=== PATIENT | female | born 1975 | race American Indian/Alaskan Native ===

== ENCOUNTER 2017-04-12 04:20 | Inpatient (IN) | payer OTHER, SELFPAY ==
--- NOTE | 2017-04-12 04:37 | ED PDOC ---
Arrival/HPI - General Chief Complaint: Medical Clearance Time Seen by Provider: 04/12/17 04:28 Historian: Patient - History of Present Illness Narrative History of Present Illness (Text): 04/12/17 04:36 Kimberly Hunter is a 41 year old female, whose past medical history includes pacemaker, who presents to the Emergency department brought in by EMS after she shocked by her pacemaker twice tonight. Patient states while at home she felt like she was going to pass out with associated palpitations when she was shocked twice by her pacemaker. Patient denies any fever, chest pain, shortness of breath, nausea, vomiting, back pain, neck pain, headache, dizziness, or any other complaints. Symptom Onset: Gradual Symptom Course: Unchanged Activities at Onset: Light Context: Home Past Medical History - Provider Review Nursing Documentation Reviewed: Yes - Cardiac Hx Pacemaker: Yes (03/31/10) - Pulmonary Hx Respiratory Disorders: No - Neurological Hx Neurological Disorder: No - HEENT Hx HEENT Disorder: No - Renal Hx Renal Disorder: No - Endocrine/Metabolic Hx Endocrine Disorders: No - Hematological/Oncological Hx Blood Disorders: No - Integumentary Hx Dermatological Disorder: No - Musculoskeletal/Rheumatological Hx Musculoskeletal Disorders: No - Gastrointestinal Hx Gastrointestinal Disorders: No - Genitourinary/Gynecological Hx Genitourinary Disorders: No - Psychiatric Hx Psychophysiologic Disorder: No Hx Substance Use: No - Surgical History Hx Open Heart Surgery: Yes (pacemaker 03/31/2010) Family/Social History - Physician Review Nursing Documentation Reviewed: Yes Family/Social History: Unknown Family HX Smoking Status: Never Smoked Hx Alcohol Use: No Hx Substance Use: No Allergies/Home Meds Allergies/Adverse Reactions: Allergies iodine Allergy (Verified 04/12/17 04:25) ANAPHYLAXIS Home Medications: Home Meds Medication Instructions Recorded Confirmed Metoprolol Succinate [Toprol XL] 50 mg PO DAILY 04/12/17 04/12/17 Phentermine HCl [Adipex-P] 37.5 mg PO DAILY 04/12/17 04/12/17 Review of Systems - Physician Review All systems were reviewed & negative as marked: Yes - Review of Systems Constitutional: Normal. absent: Fevers Eyes: Normal ENT: Normal Respiratory: Normal Cardiovascular: Palpitations, Other (+pacemaker shock) Gastrointestinal: Normal. absent: Abdominal Pain, Diarrhea, Nausea, Vomiting Genitourinary Female: Normal. absent: Dysuria, Frequency, Hematuria, Urine Output Changes Musculoskeletal: Normal. absent: Back Pain, Neck Pain Skin: Normal. absent: Rash Neurological: Normal. absent: Headache, Dizziness Endocrine: Normal Hemo/Lymphatic: Normal Psychiatric: Normal Physical Exam Vital Signs Reviewed: Yes Vital Signs Temp Pulse Resp BP Pulse Ox 04/12/17 08:25 90 18 135/80 100 04/12/17 08:00 90 18 122/70 99 04/12/17 07:45 104 H 18 122/66 98 04/12/17 07:24 98.1 F 102 H 18 125/69 100 04/12/17 06:47 102 H 22 132/72 100 04/12/17 05:54 91 H 22 126/67 100 04/12/17 04:30 98.7 F 80 12 123/78 99 Temperature: Afebrile Blood Pressure: Normal Pulse: Regular Respiratory Rate: Normal Appearance: Positive for: Well-Appearing, Non-Toxic, Comfortable Pain Distress: None Mental Status: Positive for: Alert and Oriented X 3 - Systems Exam Head: Present: Atraumatic, Normocephalic Pupils: Present: PERRL Extroacular Muscles: Present: EOMI Conjunctiva: Present: Normal Mouth: Present: Moist Mucous Membranes Neck: Present: Normal Range of Motion Respiratory/Chest: Present: Clear to Auscultation, Good Air Exchange. No: Respiratory Distress, Accessory Muscle Use Cardiovascular: Present: Regular Rate and Rhythm, Normal S1, S2. No: Murmurs Abdomen: Present: Normal Bowel Sounds. No: Tenderness, Distention, Peritoneal Signs Back: Present: Normal Inspection Upper Extremity: Present: Normal Inspection. No: Cyanosis, Edema Lower Extremity: Present: Normal Inspection. No: Edema Neurological: Present: GCS=15, CN II-XII Intact, Speech Normal Skin: Present: Warm, Dry, Normal Color. No: Rashes Psychiatric: Present: Alert, Oriented x 3, Normal Insight, Normal Concentration Medical Decision Making ED Course and Treatment: 04/12/17 04:36 Impression: 41 year old female presents s/p 2 shocks from pacemaker tonight. Plan: -- EKG -- Labs, cardiac enzymes -- UA -- Reassess and disposition Progress Notes: Reviewed EKG, sinus rhythm at 84 bpm. 1st degree AV block. Non-specific ST/T wave changes. 04/12/17 05:50 Pt's pacemaker went off while in Emergency room. Unable to visualize on monitor strip. Customer Sales Distributor home economics teacher paged. 04/12/17 05:[address] Myers, who is aware and agrees with plan. Recommends Lidocaine 100mg, and Lidocaine drip. case d/w dr escamilla accepts case, pending icu consult 04/12/17 05:57 Pt's pacemaker went off for the 2nd time while in ER. 04/14/17 09:38 - Critical Care Critical Care Minutes: 30 minutes - Lab Interpretations Lab Results: 04/12/17 04:20 04/12/17 04:20 Lab Results 04/12/17 05:15: Urine Color Yellow, Urine Appearance Sl cloudy, Urine pH 6.0, Ur Specific [place] >= 1.030, Urine Protein 30 H, Urine Glucose (UA) Negative, Urine Ketones Negative, Urine Blood Negative, Urine Nitrate Negative, Urine Bilirubin Negative, Urine Urobilinogen 0.2, Ur Leukocyte Esterase Moderate H, Urine RBC 0 - 2, Urine WBC 2 - 5, Ur Epithelial Cells 6 - 8, Urine Bacteria Mod , Urine HCG, Qual Negative 04/12/17 04:20: Sodium 143, Potassium 3.9, Chloride 108 H, Carbon Dioxide 21, Anion Gap 18, BUN 19, Creatinine 0.7, Est GFR ( Amer) > 60, Est GFR (Non- Af Amer) > 60, Random Glucose 101, Calcium 9.5, Total Bilirubin 0.6, AST 24, ALT 19, Alkaline Phosphatase 53, Lactate Dehydrogenase 506, Total Creatine Kinase 86, Troponin I < 0.01, Total Protein 7.8, Albumin 4.1, Globulin 3.7, Albumin/Globulin Ratio 1.1 04/12/17 04:20: PT 12.7 H, INR 1.10 H, APTT 26.9 04/12/17 04:20: WBC 6.7, RBC 4.12, Hgb 11.3 L, Hct 35.4 L, MCV 85.9, MCH 27.4, MCHC 31.9, RDW 15.5 H, Plt Count 205, MPV 10.5, Gran % 55.7, Lymph % (Auto) 35.1 H, [place] % (Auto) 7.8 H, Eos % (Auto) 1.3 L, Baso % (Auto) 0.1, Gran # 3.73 , Lymph # (Auto) 2.4, [place] # (Auto) 0.5, Eos # (Auto) 0.1, Baso # (Auto) 0.01 I have reviewed the lab results: Yes - RAD Interpretation Radiology Orders: 04/12/17 06:15 CHEST PORTABLE [RAD] Stat - EKG Interpretation Interpreted by ED Physician: Yes Type: 12 lead EKG - Medication Orders Current Medication Orders: Discontinued Medications Aspirin (Ecotrin) 325 mg PO STAT STA Stop: 04/12/17 07:43 Last Admin: 04/12/17 07:48 Dose: 325 mg Clopidogrel Bisulfate (Plavix) 300 mg PO STAT STA Stop: 04/12/17 07:40 Last Admin: 04/12/17 07:48 Dose: 300 mg Diphenhydramine HCl (Benadryl) 50 mg IVP STAT STA Stop: 04/12/17 08:45 Last Admin: 04/12/17 09:12 Dose: 50 mg IVP Administration Document 04/12/17 09:12 KPA (Rec: 04/12/17 12:35 KPA [id number]) Charges for Administration # of IVP Administrations 1 Enoxaparin Sodium (Lovenox) 40 mg SC DAILY JEAN PRN Reason: Protocol Famotidine (Pepcid) 20 mg IVP STAT STA Stop: 04/12/17 08:44 Last Admin: 04/12/17 09:12 Dose: 20 mg IVP Administration Document 04/12/17 09:12 KPA (Rec: 04/12/17 12:46 KPA [id number]) Charges for Administration # of IVP Administrations 1 Hydrocortisone Sodium Succinate (Solu-Cortef) 100 mg IVP STAT STA Stop: 04/12/17 08:43 Lidocaine HCl/Dextrose (Lidocaine 2 Grams In D5w) 2,000 mg in 500 mls @ 15 mls/ hr IV .Q24H PRN; Protocol; 1 MG/MIN PRN Reason: TITRATE PER MD ORDER Last Admin: 04/12/17 11:30 Dose: 1 mg/min, 15 mls/hr eMAR Start Stop Document 04/12/17 11:30 MMA (Rec: 04/12/17 11:39 MMA [facility]) Intravenous Solution Start Date 04/12/17 Start Time 11:37 Titration Intervention Document 04/12/17 11:30 MMA (Rec: 04/12/17 11:39 MMA [facility]) Titration Intake Waste Amount 0 Container Volume 500 Titration Dosing Titration Dose 1 IV Rate 15 Intake/Decrease Started Magnesium Sulfate 2 gm/ Sodium (Chloride) 104 mls @ 102 mls/hr IVPB ONCE ONE Stop: 04/12/17 09:40 Last Admin: 04/12/17 09:12 Dose: 102 mls/hr eMAR Start Stop Document 04/12/17 09:12 KPA (Rec: 04/12/17 12:48 KPA [id number]) Intravenous Solution Start Date 04/12/17 Start Time 09:12 End Date 04/12/17 End time 10:05 Total Infusion Time 53 Amiodarone HCl/Dextrose (Nexterone 150 Mg In Dextrose 100 Ml (Premix)) 150 mg in 100 mls @ 600 mls/hr IVPB ONCE ONE PRN Reason: Protocol Stop: 04/12/17 08:59 Last Admin: 04/12/17 10:57 Dose: 600 mls/hr eMAR Start Stop Document 04/12/17 10:57 KPA (Rec: 04/12/17 12:39 KPA [id number]) Intravenous Solution Start Date 04/12/17 Start Time 10:57 End Date 04/12/17 End time 11:07 Total Infusion Time 10 Magnesium Sulfate 2 gm/ Sodium (Chloride) 104 mls @ 102 mls/hr IVPB ONCE ONE Stop: 04/12/17 12:20 Last Admin: 04/12/17 11:53 Dose: 102 mls/hr eMAR Start Stop Document 04/12/17 11:53 MMA (Rec: 04/12/17 11:53 MMA [facility]) Intravenous Solution Start Date 04/12/17 Start Time 11:53 End Date 04/12/17 End time 11:53 Total Infusion Time 0 Sodium Chloride (Sodium Chloride 0.9%) 1,000 mls @ 50 mls/hr IV .Q20H JEAN Stop: 04/12/17 23:59 Last Admin: 04/12/17 12:32 Dose: 50 mls/hr eMAR Start Stop Document 04/12/17 12:32 MMA (Rec: 04/12/17 12:32 MMA [facility]) Intravenous Solution Start Date 04/12/17 Start Time 12:32 End Date 04/12/17 Amiodarone HCl/Dextrose (Nexterone 360 Mg In D5w 200 Ml (Premix)) 360 mg in 200 mls @ 33.333 mls/hr IV .Q6H JEAN; 1 MG/MIN PRN Reason: Protocol Last Admin: 04/12/17 11:30 Dose: 33.333 mls/hr eMAR Start Stop Document 04/12/17 11:30 MMA (Rec: 04/12/17 13:20 MMA [facility]) Intravenous Solution Start Date 04/12/17 Start Time 11:30 End Date 04/12/17 Lidocaine (Lidocaine) 100 mg IV STAT STA Stop: 04/12/17 06:01 Last Admin: 04/12/17 06:04 Dose: 100 mg eMAR Start Stop Document 04/12/17 06:04 CNR (Rec: 04/12/17 06:04 CNR [id number]) Intravenous Solution Start Date 04/12/17 Start Time 06:04 Lidocaine (Lidocaine) 75 mg IV STAT STA Stop: 04/12/17 06:37 Last Admin: 04/12/17 06:43 Dose: 75 mg eMAR Start Stop Document 04/12/17 06:43 CNR (Rec: 04/12/17 06:43 CNR [id number]) Intravenous Solution Start Date 04/12/17 Start Time 06:43 Metoprolol Succinate (Toprol Xl) 50 mg PO STAT STA Stop: 04/12/17 07:40 Last Admin: 04/12/17 07:49 Dose: 50 mg Metoprolol Tartrate (Lopressor) 5 mg IVP STAT STA Stop: 04/12/17 07:40 Last Admin: 04/12/17 07:48 Dose: 5 mg IVP Administration Document 04/12/17 07:48 SZA (Rec: 04/12/17 07:48 SZA [id number]) Charges for Administration # of IVP Administrations 1 Metoprolol Tartrate (Lopressor) 25 mg PO BID JEAN Metoprolol Tartrate (Lopressor) 5 mg IVP ONCE ONE Stop: 04/12/17 13:38 Last Admin: 04/12/17 14:18 Dose: 5 mg IVP Administration Document 04/12/17 14:18 MMA (Rec: 04/12/17 14:18 MMA [facility]) Charges for Administration # of IVP Administrations 1 MAR Pulse and Blood Pressure Document 04/12/17 14:18 [facility] (Rec: 04/12/17 14:18 [facility]) Pulse Pulse Rate (60-90) 76 Blood Pressure Blood Pressure (100/60-150/90) 108/64 Metoprolol Tartrate (Lopressor) 5 mg IVP Q6H JEAN Stop: 04/13/17 18:01 Last Admin: 04/12/17 17:40 Dose: 5 mg IVP Administration Document 04/12/17 17:40 [facility] (Rec: 04/12/17 17:41 [facility]) Charges for Administration # of IVP Administrations 1 MAR Pulse and Blood Pressure Document 04/12/17 17:40 [facility] (Rec: 04/12/17 17:41 [facility]) Pulse Pulse Rate (60-90) 75 Blood Pressure Blood Pressure (100/60-150/90) 111/70 Pneumococcal Polyvalent Vaccine (Pneumovax 23 Vaccine) 0.5 ml IM .ONCE ONE Stop: 04/12/17 13:17 - Scribe Statement The provider has reviewed the documentation as recorded by the Jina Pulido Provider Scribe Attestation: All medical record entries made by the Scribronny were at my direction and personally dictated by me. I have reviewed the chart and agree that the record accurately reflects my personal performance of the history, physical exam, medical decision making, and the department course for this patient. I have also personally directed, reviewed, and agree with the discharge instructions and disposition. Disposition/Present on Arrival - Present on Arrival Any Indicators Present on Arrival: No History of DVT/PE: No History of Uncontrolled Diabetes: No Urinary Catheter: No History of Decub. Ulcer: No History Surgical Site Infection Following: None - Disposition Have Diagnosis and Disposition been Completed?: Yes Diagnosis: Ventricular fibrillation Disposition: HOSPITALIZED Disposition Time: 06:45 Condition: SERIOUS
[2017-04-12 05:17] LABS: BASO # 0.01 K/mm3 (0.0-2.0); BASO % 0.1 % (0.0-3.0); EOS # 0.1 (0.0-0.7); EOS % 1.3 % (1.5-5.0); GRAN # 3.73 (1.4-6.5); GRAN % 55.7 % (50.0-68.0); HEMOGLOBIN 11.3 g/dL (12.0-16.0); LYMPH # 2.4 (1.2-3.4); LYMPH % 35.1 % (22.0-35.0); MEAN CELL VOLUME 85.9 fl (80.0-105.0); MEAN CORPUSCULAR HEMOGLOBIN 27.4 pg (25.0-35.0); MEAN CORPUSCULAR HGB CONC 31.9 g/dl (31.0-37.0); MEAN PLATELET VOLUME 10.5 fl (7.0-11.0); MONO # 0.5 (0.1-0.6); MONO % 7.8 % (1.0-6.0); RBC 4.12 10^6/uL (3.5-6.1); RED CELL DISTRIBUTION WIDTH 15.5 % (11.5-14.5); WHITE BLOOD COUNT 6.7 10^3/ul (4.5-11.0)
[2017-04-12 05:19] LABS: ALB/GLOB RATIO 1.1 (1.1-1.8); ALBUMIN 4.1 g/dL (3.0-4.8); ALT/SGPT 19 U/L (7-56); AST/SGOT 24 U/L (14-36); BLOOD UREA NITROGEN 19 mg/dL (7-21); CALCIUM 9.5 mg/dL (8.4-10.5); GFR AFRICAN-AMERICAN > 60; GFR NON-AFRICAN AMERICAN > 60
[2017-04-12 05:30] LABS: TROPONIN I < 0.01 ng/mL
[2017-04-12 05:52] LABS: INR 1.1 (0.93-1.08); PARTIAL THROMBOPLASTIN TIME 26.9 Seconds (25.1-36.5); PROTHROMBIN TIME 12.7 SECONDS (9.4-12.5)
[2017-04-12 05:57] LABS: URINE BILIRUBIN NEGATIVE (NEGATIVE); URINE BLOOD NEGATIVE (NEGATIVE); URINE GLUCOSE (UA) NEGATIVE (NEGATIVE); URINE LEUKOCYTE ESTERASE MODERATE Leu/uL (NEGATIVE); URINE NITRATE NEGATIVE (NEGATIVE); URINE PROTEIN 30 mg/dL (<30 mg/dL); URINE UROBILINOGEN 0.2 E.U./dL (<1 E.U./dL)
[2017-04-12 06:13] LABS: URINE APPEARANCE SL CLOUDY (CLEAR); URINE COLOR YELLOW (YELLOW)
[2017-04-12 06:14] LABS: HCG,QUALITATIVE URINE NEGATIVE (NEGATIVE)
[2017-04-12] MEDS: Lidocaine 2 Grams in D5W 2,000 MG/500 ML BAG IV PRN ×2 (06:15→11:30)
[2017-04-12 06:49] LABS: URINE RBC 0 - 2 /hpf (0-2)
[2017-04-12 06:50] LABS: URINE BACTERIA MOD (NEG)
[2017-04-12] MEDS ORDERED: Metoprolol Succinate 50 mg XL Tab PO STA (07:39)
[2017-04-12] MEDS ORDERED: Metoprolol 1 mg/ml Inj IVP STA (07:39)
[2017-04-12] MEDS: Aspirin 325 mg EC Tablets PO STA (07:48)
[2017-04-12] MEDS ORDERED: Lidocaine 2% Inj (20ml) ONE (08:28)
[2017-04-12] MEDS ORDERED: Midazolam 2 MG/2 ML VIAL ONE ×2 (08:28→11:04)
[2017-04-12] MEDS ORDERED: Verapamil 2 ML ONE (08:28)
[2017-04-12] MEDS ORDERED: Iodixanol 320 MG/ML 200 ML BOTTLE IV ONE (08:29)
[2017-04-12] MEDS ORDERED: Nitroglycerin 50mg in D5W 50 MG/250 ML BOTTLE IV ONE (08:29)
[2017-04-12] MEDS ORDERED: HEPARIN SODIUM/NS 2,000 ML IV ONE (08:29)
[2017-04-12] MEDS ORDERED: Magnesium Sulfate 2 GM in Sodium Chloride 0.9% 100 ML IVPB ONE ×2 (08:39→11:19)
[2017-04-12] MEDS ORDERED: DiphenhydrAMINE 50 mg/ml Inj IVP STA (08:44)
[2017-04-12] MEDS ORDERED: Famotidine 20mg/50ml 20 MG/50 ML BAG IVPB ONE (08:50)
[2017-04-12] MEDS ORDERED: Amiodarone 150 mg/D5W 100 ml 150 MG/100 ML BAG IVPB ONE (08:50)
[2017-04-12] MEDS ORDERED: DiphenhydrAMINE 50 mg/ml Inj ONE (08:50)
--- NOTE | 2017-04-12 10:00 | RAD ---
HISTORY: cp COMPARISON: No prior. FINDINGS: LUNGS: No active pulmonary disease. PLEURA: No significant pleural effusion identified, no pneumothorax apparent. CARDIOVASCULAR: Mild cardiomegaly suspected though from tiny limits interpretation. No pulmonary vascular derangement evident. Implanted cardiac defibrillator/pacemaker in place including a left pectoral generator with 2 leads identified entering into the heart by an apparent left subclavian approach. OSSEOUS STRUCTURES: No significant abnormalities. VISUALIZED UPPER ABDOMEN: Normal. OTHER FINDINGS: None. IMPRESSION: No acute infiltrate, pleural effusion or pneumothorax bilaterally. No pulmonary derangement. Cardiomegaly is suspected though technical magnification is likely in effect to some degree in this portable chest radiograph. Left-sided AICD in position as described above.
--- NOTE | 2017-04-12 10:36 | CARD ---
APPROVED REPORT EKG Measurement Heart [id number] <Conclusion> Sinus rhythm with 1st degree AV block Moderate voltage criteria for LVH J-point elevations l, L
[2017-04-12] MEDS ORDERED: Amiodarone 150 mg/D5W 100 ml 150 MG/100 ML BAG ONE ×2 (10:58→11:02)
[2017-04-12] MEDS ORDERED: Sodium Chloride 0.9% 1,000 ML IV SCH (11:30)
[2017-04-12] MEDS ORDERED: Amiodarone 360 mg/D5W 200 ml 360 MG/200 ML BAG IV SCH (13:15)
[2017-04-12 13:16] VITALS: BMI 38.9
[2017-04-12] MEDS ORDERED: Influenza Vaccine 60 mcg/0.5 mL SYR (4YR UP) IM ONE (13:16)
[2017-04-12] MEDS ORDERED: Pneumococcal 23-Valent Vaccine IM ONE (13:16)
[2017-04-12] MEDS ORDERED: Metoprolol 1 mg/ml Inj IVP ONE (13:37)
--- NOTE | 2017-04-12 16:41 | CON ---
DATE: HISTORY OF PRESENT ILLNESS: This is a 41-year-old female with past medical history of cardiac arrhythmia of unclear origin and etiology, status post pacemaker defibrillator placed in 2010 who presented this time via EMS after she was shocked by her pacemaker twice. During the episode, she felt dizzy, lightheaded; however, did not pass out. Patient denied fever, chest pain, shortness of breath, nausea, vomiting, back pain, neck pain, headache, dizziness. She also had similar episodes in the emergency room and appeared to be shocked out of it. However, she did not report feeling those shocks. PAST MEDICAL HISTORY: Cardiac arrhythmia. SOCIAL HISTORY: Patient is a lifelong nonsmoker. No alcohol or illicit drug abuse. ALLERGIES: IODINE. FAMILY HISTORY: Noncontributory. MEDICATIONS AT HOME: Metoprolol and phentermine. REVIEW OF SYSTEMS: Review of 12-organ system other than mentioned in history of present illness is negative. PHYSICAL EXAMINATION: VITAL SIGNS: Blood pressure 135/80, heart rate 90, temperature 98.1, respiratory rate 18, oxygen saturation 100% on room air. ENT: Head and neck atraumatic. LUNGS: Clear to auscultation bilaterally. HEART: Regular rate and rhythm. S1, S2 normal. ABDOMEN: Soft, nontender, nondistended. MUSCULOSKELETAL: No C/C/E. NEUROLOGIC: Patient moves all extremities spontaneously. SKIN: Moist. PSYCHIATRIC: Patient is alert and oriented x3. LABORATORY DATA AND IMAGING: WBC 6.7, hemoglobin 11.3, platelet count 205. Sodium 143, potassium 3.9, chloride 108, carbon dioxide 21, BUN 19, creatinine 0.7, glucose 101, AST 24, ALT 19, total bilirubin 0.6. Troponin less than 0.01. INR 1.10. Chest x-ray; no active pulmonary disease. Pacemaker and its lead appears to be without malposition and not broken. ASSESSMENT AND PLAN: This is a 41-year-old lady, who presented with episode of symptomatic VT with subsequent discharge of implanted AICD. Patient will be going to cardiac cath suite for coronary angiography by Cardiac service and was started on lidocaine drip. Patient is allergic to iodine and thus, amiodarone cannot be used. Whether or not pacemaker/defibrillator has to be interrogated will be deferred by Cardiology services. We will continue to stick with Cardiology recommendation. We will continue to target euvolemia, euglycemia, normothermia, and oxygen saturation more than 90%. At present time, the patient is hemodynamically and respiratory-merchant stable. Addendum: coronaries clear. amiodarone started in angio suit without any sign of allergic reaction, will continue. As per cardiology service patient will be transfered to for further monitoring. ccm time 40 min Baltazar Khan MD MTDTanna
[2017-04-12 17:43] VITALS: PULSE 75
[2017-04-12] MEDS ORDERED: Metoprolol Succinate 25 mg XL Tab PO SCH (18:00)
[2017-04-12] MEDS ORDERED: Metoprolol 1 mg/ml Inj IVP SCH (18:00)
--- NOTE | 2017-04-12 18:48 | PN ---
DATE: REASON FOR FOLLOWUP: Patient reassessed in ICU after having cardiac catheterization done. SUBJECTIVE: As mentioned, cardiac catheterization was essentially normal coronaries, preserved LV function. Patient was having VT, last VT done after the patient transferred from the lab manager to the ICU. Currently, the patient is on lidocaine and amio. Discussed at length with multiple times, reference the patient. Since the patient has normal function, probably the VT is most likely secondary to phentermine that the patient is taking for weight reduction. Yesterday, she took the last dose. PLAN: We will give more beta-blockers, start IV Lopressor 5 mg q. 6. We will discontinue amio, continue lido for now and we will transfer to [facility] when the bed is available. We will follow closely. We will get also the echo to rule out structural heart disease. We will get lipid profile, TSH, hemoglobin A1c, if the patient stays here. Thank you, Dr. Finn for providing us the opportunity in taking care of the patient, Kimberly Hunter. Kole Myers MD cc: Dr. Finn.
--- NOTE | 2017-04-12 18:58 | CON ---
DATE: CONSULT SERVICE: Cardiology. CONSULTING PHYSICIAN: Kole Myers M.D. REASON FOR CONSULTATION: Possible VT/VF, defibrillator went off. BRIEF CLINICAL HISTORY: This is a 41-year-old female with past medical history significant for arrhythmia, status post defibrillator placed in 2010 after having cardiac catheterization. Since then, the patient remained fairly stable. This morning, the patient had presentation for promotion, so at 3'o clock, she herself found from the bed to the floor. She could not understand what happened, then she felt dizzy, went to the bathroom where she had another episode happened floor, possibly defibrillator went off, so the patient came to the emergency room around 4'o clock, between 4:00 and 4:30 while the patient was in ER, watching TV with her daughter, awaiting to be evaluated, defibrillator went off. Patient complained of some chest discomfort, epigastric and feel sick to the stomach. PAST MEDICAL HISTORY: Significant for defibrillator, questionable history of cardiac catheterization in 2010, being followed by Dr. Jimenez and Dr. Herrera. Significant for AICD, status post cardiac catheterization questionable 7 years ago. CURRENT MEDICATIONS: Patient is on Toprol-XL 50 mg and phentermine to reduce the weight. FAMILY HISTORY: No significant history of coronary artery disease except mother, questionable history of a stent. PAST SURGICAL HISTORY: History of defibrillator placed in 2010. SOCIAL HISTORY: Denies smoking. Denies any history of alcohol abuse. REVIEW OF SYSTEMS: As per HPI. PHYSICAL EXAMINATION: As follows: VITAL SIGNS: Temperature afebrile, heart rate 90, blood pressure 135/80. HEENT: PERRLA. Extraocular muscles intact. NECK: Supple. No carotid bruits or thyromegaly. CHEST: Clear to auscultation. HEART: S1 and S2 regular. ABDOMEN: Soft. EXTREMITIES: Clubbing and cyanosis negative. LABORATORY DATA AND IMAGING: Blood workup as follows, WBC 6.2, hemoglobin 11, hematocrit 35.4, platelet count 205. Chemistry showed sodium 142, potassium 3.9, chloride 108, carbon dioxide 21, anion gap of 18. BUN 19, creatinine 0.7. Troponin is 0.07. EKG shows normal sinus. ASSESSMENT: Arrhythmia, ventricular tachycardia/ventricular fibrillation, defibrillator went 3 to 4 times, rule out ischemic substrate, rule out low magnesium level. Monitor electrolytes. Since, the patient was labeled ALLERGIC TO IODINE after the cardiac catheterization, so the patient was started on lidocaine. PLAN: The plan was to start amiodarone bolus, but it could not be started. Since the patient having breakthrough load with Solu-Cortef, Benadryl and Pepcid and do the cardiac catheterization and also start IV mag rider 2 g and also start IV amiodarone. After the cardiac catheterization, depending upon, we will decide the patient to be sent to the [facility] for EP evaluation. In between, we will call the [employer] for interrogation of the ICD to find out underlying rhythm with SVT or ventricular tachycardia/VF. The patient said initially she had FVT when the defibrillator was placed. We will follow with you. Thank you Dr. Finn, for providing us the opportunity in taking care of the patient, Kimberly Hunter. Kole Myers MD
[2017-04-12 21:41] VITALS: BP 97/60; RESP 19; O2SAT 97
[2017-04-12 21:42] VITALS: TEMP 98.6
--- NOTE | 2017-04-13 01:39 | CARDCATH ---
PROCEDURE DATE: 04/12/2017 LEFT HEART CATHETERIZATION AND POSSIBLE ANGIOPLASTY BRIEF CLINICAL HISTORY: This is 41-year-old female with a past medical history significant for defibrillator in 2010, who woke up at home and found herself on the ground. Then, she woke up and went to bathroom and she suddenly fell down again. Possibly the defibrillator fired at that time and she returned to life. Later on, she called the ambulance and then while watching the television on the bed in the ER of the [facility], defibrillator went off. Since then, patient had seven times defibrillator went off, so I decided to take to the laborer landscape to rule out any ishemic substrate. Indication was pacemaker, V-fib torsades, multiple defibrillator shocks. Pacemaker interrogation done that showed patient, since this morning, had eight times defibrillator went off. OPERATIVE DOCTOR: Gorge Myers MD CLINICAL PROVIDER TRAINER: Vickie, large animal husbandry technician. CASE TECHNIQUE: Patient was brought to the laborer landscape, draped in a standard sterile fashion. Right groin punctured using Seldinger technique with a micropuncture and left and right Connor catheter, and pigtail catheter used for coronary angiography. FINDINGS: As follows: 1. Vessel's analysis, patient's dominant is a codominant system of artery. Left main, large caliber vessels, essentially free of significant disease, bifurcate LAD and circumflex. LAD, essentially normal coronaries, no flow obstructive stenosis noted, gives multiple diagonal branches. Circumflex is a [id number] caliber vessel, essentially free of significant disease, gives multiple OM1, OM2, OM3 branches. Right coronary artery, codominant, small caliber vessels, medium but essentially free of significant disease. 2. LV gram done showed ejection fraction in the range of 55%. Aortic pressure of 104/80, LVEDP was in the range of 18. IMPRESSION: Normal coronaries, good left ventricular function, ventricular tachycardia, ventricular fibrillation, status post automatic implantable cardioverter defibrillator, is status post multiple times automatic implantable cardioverter defibrillator fired, and three times AICD fired while she was in the laborer landscape. CONCLUSION: Normal coronaries, codominant system, preserved LV function. VT, Vfib since defibrillator went off seven times before going to the laborer landscape, was interrogated. Three times defibrillator went off while the patient was in laborer landscape on the table. RECOMMENDATION: We will start IV amiodarone, continue lidocaine. Gave beta-ginna. Most likely symptoms secondary to phentermine-induced arrhythmia. Patient was on phentermine and remained quiet for last many years. Now, recently patient started phentermine for weight reduction and possibly this could be the culprit. We will try to get in touch with Dr. Jimenez, who is an sausage maker and who placed the defibrillator from [facility] and possibly transfer to [facility]. Further recommendation after discussion with Dr. Jimenez. Thank you, , for providing us the opportunity in taking care of the patient, Kimberly Hunter. Kole Myers MD MTDTanna
--- NOTE | 2017-04-13 05:37 | HP ---
HISTORY OF PRESENT ILLNESS: The patient is 41-year-old. The patient of ; I am covering for her. In 2010, she was having syncope attack and she had multiple falls. So investigation was done and she was found to have SVTs; at that point she has defibrillator placed. The patient states since yesterday, it never happened before, but the defibrillator was firing. She had two episodes. After that, she became dizzy, she vomited and she had two episodes this morning. So, she came to emergency room for further evaluation. The patient denies any fever, chills. No nausea or vomiting. No chest pain. No shortness of breath. Does complain of feeling weak and dizzy. HISTORY OF PRESENT ILLNESS: Is only significant for defibrillator placement that was in 2000 after she had multiple episodes of passing out. ALLERGIES: SHE IS ALLERGIC TO IODINE. MEDICATION AT HOME: She is on Adipex 37.5 daily that was recently started almost a month ago, metoprolol 50 mg daily, multivitamin, and vitamin D. SOCIAL HISTORY: Denies smoking, drinking, or alcohol use. She only drinks socially. REVIEW OF SYSTEMS: Significant for generalized weakness and feeling weak and dizzy. PHYSICAL EXAMINATION: VITAL SIGNS: She is afebrile, pulse 75, respirations 14, blood pressure 111/70. LUNGS: Bilateral fair airflow. No rhonchi or crackle. HEART: S1, S2 audible. ABDOMEN: Soft, Obese. Nontender. No rebound. No guarding. NEUROLOGICAL: She is awake, alert, oriented. Able to communicate. LABORATORY DATA: WBC 6.7, hemoglobin 11.3, hematocrit 35.4, and platelets of 205. PT 12.7, INR 1.10. Chemistry; sodium 143, potassium 3.9, chloride 108, CO2 of 21, BUN 19, creatinine 0.7, blood sugar of 101. Magnesium 1.7. LFTs are within normal limits. Troponin is 0.01. Leukocyte moderate. Protein is 30. She had cardiac cath done and showed nonocclusive coronaries. ASSESSMENT AND PLAN: 1. Episode of syncope secondary to firing of defibrillator. 2. Ventricular tachycardia. 3. Moderate obesity with recent prescription of stimulant that is Adipex. The patient was given amiodarone, currently the patient is on lidocaine. She is on metoprolol 25 b.i.d. and she is on Lovenox. Cardiology evaluation was done by Dr. Myers. Plan is to sent her for EPS study. Farzad Guevara MD
--- NOTE | 2017-04-13 09:31 | CARD ---
APPROVED REPORT EKG Measurement Heart [id number] <Conclusion> Normal sinus rhythm Minimal voltage criteria for LVH, may be normal variant J point elevation 1,L No change
[2017-04-13] MEDS ORDERED: Enoxaparin 40 mg Syringe SC SCH (10:00)
--- NOTE | 2017-04-14 08:46 | DS ---
Patient is 41 years old who was admitted after her defibrillator fired, Dr. 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 Jimenez who placed the defibrillator initially, so patient was transferred to [facility] yesterday for further management and patient will be taken care in [facility] and then, she will follow up with her own primary care doctor. Farzad Guevara MD
== END 2017-04-12 21:20 | disposition short-term general hospital (02) | DRG 287 ==
LOC: ED 04:20 → ERH 07:11 → ICU 11:26
PROVIDERS: ADMIT Internal Medicine; ATTEND Internal Medicine
PROC: 4A023N7 Measurement of Cardiac Sampling and Pressure, Left Heart, Percutaneous Approach (ICD-10-PCS; principal; 2017-04-12)
PROC: B2151ZZ Fluoroscopy of Left Heart using Low Osmolar Contrast (ICD-10-PCS; 2017-04-12)
PROC: B2111ZZ Fluoroscopy of Multiple Coronary Arteries using Low Osmolar Contrast (ICD-10-PCS; 2017-04-12)
PROC: 4B02XSZ Measurement of Cardiac Pacemaker, External Approach (ICD-10-PCS; 2017-04-12)
DX: I47.2 Ventricular tachycardia (principal); I49.01 Ventricular fibrillation; E66.9 Obesity, unspecified; Z68.39 Body mass index [BMI] 39.0-39.9, adult; Z95.810 Presence of automatic (implantable) cardiac defibrillator; Z91.041 Radiographic dye allergy status